=== PATIENT | male | born 1940 | race Caucasian/White ===

== ENCOUNTER → 2016-04-01 | Outpatient (CLI) | payer MEDICARE ==
[~2016-04-01] MED LIST: ALLO100T PO; CLON0.2T PO; COUM5TAB PO; FURO1TAB60 PO; METO25TA3 PO; POTA-163 PO; PRESCAP6 PO; SYMB80AE INH; SYSTSOL9 EACH EYE; [UNRECOGNIZED DRUG - CODE] PO
== END ==
LOC: PLAB 11:11
PROVIDERS: ATTEND Urology
DX: N40.1 Benign prostatic hyperplasia with lower urinary tract symptoms (principal)
CPT/HCPCS: 36415; 84153

== ENCOUNTER → 2016-04-28 | Outpatient (CLI) | payer MEDICARE ==
[2016-04-28 09:39] LABS: BASOPHIL # 0.1 TH/MM3 (0-0.2); BASOPHIL % 1.2 % (0.0-2.0); EOSINOPHIL # 0.2 TH/MM3 (0-0.4); EOSINOPHIL % 4.4 % (0.0-4.0); HEMATOCRIT 44.5 % (39.0-51.0); HEMO FLAGS DIFF FINAL; LYMPH % 25.7 % (9.0-44.0); LYMPHOCYTE # 1.2 TH/MM3 (1.0-4.8); MEAN CELL VOLUME 97.1 FL (80.0-100.0); MEAN CORPUSCULAR HEMOGLOBIN 32.7 PG (27.0-34.0); MEAN CORPUSCULAR HGB CONC 33.7 % (32.0-36.0); MONO % 5.6 % (0.0-8.0); NEUT % 63.1 % (16.0-70.0); PLATELET COUNT 121 TH/MM3 (150-450); RED BLOOD COUNT 4.58 MIL/MM3 (4.50-5.90); RED CELL DISTRIBUTION WIDTH 13.6 % (11.6-17.2); WHITE BLOOD COUNT 4.8 TH/MM3 (4.0-11.0)
[2016-04-28 10:07] LABS: ALKALINE PHOSPHATASE 103 U/L (45-117); ALT (GPT) 46 U/L (12-78); ANION GAP 6 MEQ/L (5-15); AST (GOT) 41 U/L (15-37); BICARBONATE 31.2 MEQ/L (21.0-32.0); BLOOD UREA NITROGEN 17 MG/DL (7-18); CHLORIDE 102 MEQ/L (98-107); GLOMERULAR FILTRATION RATE 72 ML/MIN (>89); GLUCOSE,FASTING 98 MG/DL (74-99); LDL CHOLESTEROL 76 MG/DL (0-99); POTASSIUM 4.6 MEQ/L (3.5-5.1); SODIUM (NA) 139 MEQ/L (136-145); TOTAL BILIRUBIN ADULT 0.5 MG/DL (0.2-1.0); URIC ACID 5.9 MG/DL (2.6-7.2)
== END ==
LOC: PLAB 07:17
PROVIDERS: ATTEND Family Medicine
DX: E78.2 Mixed hyperlipidemia (principal); M10.9 Gout, unspecified; D69.6 Thrombocytopenia, unspecified
CPT/HCPCS: 36415; 80053; 80061; 84550; 85025

== ENCOUNTER → 2016-05-12 | Outpatient (CLI) | payer MEDICARE ==
[2016-05-12 10:00] LABS: BLOOD GAS BASE EXCESS 1.4 mmol/L (-2-2); BLOOD GAS CARBOXYHEMOGLOBIN 1.3 % (0-4); BLOOD GAS HCO3 25 mmol/L (22-26); BLOOD GAS O2 HGB SATURATION 94 % (90-100); BLOOD GAS OXYGEN CONTENT 19.8 Vol % (12.0-20.0); BLOOD GAS PCO2 38 mmHg (38-42); BLOOD GAS PO2 84 mmHg (61-120); BLOOD GAS TOTAL HGB 14.9 G/DL (12.0-16.0); CRITICAL VALUE NO; DRAW SITE RT RADIAL; FIO2 21 %; NUMBER OF ARTERIAL PUNCTURES 1; STAT NO; TEMP CORR TO 98.6; ULNAR PULSE PRESENT
--- NOTE | 2016-05-16 12:04 | RSPPFT ---
DATE OF PROCEDURE: 05/12/16 COMMENTS: The forced vital capacity shows a small reduction with no significant improvement after bronchodilator. The FEV1 is normal with no significant improvement after bronchodilator. The FEV1/FVC ratio is normal. The FEF 25-75 is normal. The total lung capacity is normal but on the low end of normal with a normal residual volume and an increased RV/TLC ratio. IMPRESSION: This is compatible with mild, irreversible, obstructive lung disease. The diffusion capacity is normal when corrected for alveolar volume.
--- NOTE | 2016-05-16 12:30 | RSPPFT ---
DATE OF PROCEDURE: 05/12/16 COMMENTS: Spirometry shows FVC is 2.9 at 74% of predicted, FEV1 of 2.1 at 84%, FEV1/FVC ratio is normal. Flow is normal at FEF 25 and decreased at FEF 50, FEF 75 and FEF 25-75. There is no response after bronchodilator treatment. Lung volumes show residual volume is normal. TLC is normal. Diffusion capacity is normal. Flow volume loops indicate terminal airways obstruction. Room air arterial blood gases show pH 7.4, PCO2 of 38, PO2 of 83, BiCarb of 25%, O2 Saturation at 94%. IMPRESSION: 1. Mild small airways obstructive lung disease. 2. No response after bronchodilator treatment. 3. Normal lung volumes. 4. Normal diffusion capacity. 5. Room air arterial blood gases show normal oxygenation.
== END ==
LOC: HRSP 08:54
PROVIDERS: ATTEND Family Medicine
DX: R05 Cough (principal)
CPT/HCPCS: 36600; 82805; 94060; 94726; 94729

== ENCOUNTER → 2016-09-26 | Outpatient (CLI) | payer MEDICARE ==
[2016-09-26 16:51] LABS: HEMATOCRIT 46.2 % (39.0-51.0); MEAN CELL VOLUME 93.8 FL (80.0-100.0); MEAN CORPUSCULAR HEMOGLOBIN 31.8 PG (27.0-34.0); MEAN CORPUSCULAR HGB CONC 33.9 % (32.0-36.0); PLATELET COUNT 111 TH/MM3 (150-450); RED BLOOD COUNT 4.92 MIL/MM3 (4.50-5.90); RED CELL DISTRIBUTION WIDTH 14.3 % (11.6-17.2); REVIEW FLAG FINAL
== END ==
LOC: PLAB 11:05
PROVIDERS: ATTEND Internal Medicine Interventional Cardiology
DX: I48.91 Unspecified atrial fibrillation (principal); I11.9 Hypertensive heart disease without heart failure; E78.5 Hyperlipidemia, unspecified
CPT/HCPCS: 36415; 85027

== ENCOUNTER → 2016-12-07 | Outpatient (CLI) | payer MEDICARE ==
[~2016-12-07] MED LIST changes: +LISI10TA3 PO; +POTA10TA2 PO; +SYSTSOL8 EACH EYE; +[UNRECOGNIZED DRUG - CODE] PO
[2016-12-07 13:25] LABS: HEMATOCRIT 43.3 % (39.0-51.0); MEAN CORPUSCULAR HEMOGLOBIN 33.4 PG (27.0-34.0); MEAN CORPUSCULAR HGB CONC 33.8 % (32.0-36.0); PLATELET COUNT 108 TH/MM3 (150-450); RED BLOOD COUNT 4.38 MIL/MM3 (4.50-5.90); RED CELL DISTRIBUTION WIDTH 12.9 % (11.6-17.2); REVIEW FLAG FINAL; WHITE BLOOD COUNT 5.6 TH/MM3 (4.0-11.0)
[2016-12-07 13:51] LABS: ANION GAP 3 MEQ/L (5-15); AST (GOT) 29 U/L (15-37); BICARBONATE 31.9 MEQ/L (21.0-32.0); BLOOD UREA NITROGEN 19 MG/DL (7-18); CHLORIDE 103 MEQ/L (98-107); GLOMERULAR FILTRATION RATE 68 ML/MIN (>89); GLUCOSE,FASTING 90 MG/DL (74-99); POTASSIUM 4.1 MEQ/L (3.5-5.1); SODIUM (NA) 138 MEQ/L (136-145)
[2016-12-07 14:14] LABS: ALKALINE PHOSPHATASE 91 U/L (45-117); ALT (GPT) 32 U/L (12-78); HDL CHOLESTEROL 42.1 MG/DL (40.0-60.0); LDL CHOLESTEROL 87 MG/DL (0-99); TOTAL BILIRUBIN ADULT 0.5 MG/DL (0.2-1.0); URIC ACID 6.7 MG/DL (2.6-7.2)
== END ==
LOC: PLAB 08:34
PROVIDERS: ATTEND Family Medicine
DX: D69.6 Thrombocytopenia, unspecified (principal); M10.9 Gout, unspecified; I10 Essential (primary) hypertension; N40.0 Benign prostatic hyperplasia without lower urinary tract symptoms
CPT/HCPCS: 36415; 80053; 80061; 84153; 84550; 85027

== ENCOUNTER → 2017-04-14 | Outpatient (CLI) | payer MEDICARE ==
[~2017-04-14] MED LIST changes: -CLON0.2T PO; -POTA-163 PO; -SYSTSOL9 EACH EYE; -[UNRECOGNIZED DRUG - CODE] PO
== END ==
LOC: PLAB 10:24
PROVIDERS: ATTEND Urology
DX: N40.1 Benign prostatic hyperplasia with lower urinary tract symptoms (principal)
CPT/HCPCS: 36415; 84153

== ENCOUNTER → 2017-05-31 | Outpatient (CLI) | payer MEDICARE ==
[2017-05-31 11:00] LABS: AUTOMATED NEUTROPHIL # 3.6 TH/MM3 (1.8-7.7); BASOPHIL % 0.4 % (0.0-2.0); EOSINOPHIL # 0.2 TH/MM3 (0-0.4); EOSINOPHIL % 3.1 % (0.0-4.0); HEMATOCRIT 44.4 % (39.0-51.0); HEMOGLOBIN 15.2 GM/DL (13.0-17.0); LYMPH % 24.2 % (9.0-44.0); LYMPHOCYTE # 1.3 TH/MM3 (1.0-4.8); MEAN CELL VOLUME 92.6 FL (80.0-100.0); MEAN CORPUSCULAR HEMOGLOBIN 31.6 PG (27.0-34.0); MEAN CORPUSCULAR HGB CONC 34.2 % (32.0-36.0); MEAN PLATELET VOLUME 10.4 FL (7.0-11.0); MONO % 7.5 % (0.0-8.0); MONOCYTE # 0.4 TH/MM3 (0-0.9); NEUT % 64.8 % (16.0-70.0); PLATELET COUNT 99 TH/MM3 (150-450); RED BLOOD COUNT 4.79 MIL/MM3 (4.50-5.90); RED CELL DISTRIBUTION WIDTH 14.7 % (11.6-17.2); WHITE BLOOD COUNT 5.5 TH/MM3 (4.0-11.0)
== END ==
LOC: PLAB 08:14
PROVIDERS: ATTEND Internal Medicine Interventional Cardiology
DX: I48.91 Unspecified atrial fibrillation (principal); I11.9 Hypertensive heart disease without heart failure; E78.5 Hyperlipidemia, unspecified
CPT/HCPCS: 36415; 85025

== ENCOUNTER → 2017-06-14 | Outpatient (CLI) | payer MEDICARE ==
[~2017-06-14] MED LIST changes: +AMLO10TA2 PO
[2017-06-14 11:10] LABS: BICARBONATE 28.2 MEQ/L (21.0-32.0); CALCIUM 8.8 MG/DL (8.5-10.1); CREATININE 0.93 MG/DL (0.60-1.30)
== END ==
LOC: PLAB 08:27
PROVIDERS: ATTEND Internal Medicine Interventional Cardiology
DX: E78.5 Hyperlipidemia, unspecified (principal); I25.10 Atherosclerotic heart disease of native coronary artery without angina pectoris; Z79.899 Other long term (current) drug therapy
CPT/HCPCS: 36415; 80048

== ENCOUNTER 2017-06-15 20:47 | Emergency (ER) | payer MEDICARE ==
[~2017-06-15] VITALS: Ht 175.3 cm; Wt 82.6 kg
[~2017-06-15 20:47] MED LIST changes: -AMLO10TA2 PO
[2017-06-15 20:52] VITALS: BP 222/106; PULSE 70; RESP 16; TEMP 98.5; O2SAT 99
[2017-06-15 21:31] VITALS: BP 213/108; PULSE 63; RESP 18; O2SAT 96
[2017-06-15] MEDS ORDERED: cloNIDine HCL 0.1 MG TAB PO ONE (22:00)
[2017-06-15] MEDS ORDERED: AMLO10TA2 PO (22:01)
--- NOTE | 2017-06-15 22:01 | PD ---
HPI Chief Complaint: Hypertension Time Seen by Provider: 21:42 Travel History International Travel<30 days: No Contact w/Intl Traveler<30days: No Traveled to known affect area: No History of Present Illness HPI 77-year-old male complains of elevated blood pressure. Patient has history of hypertension and was on lisinopril 10 mg daily and metoprolol 25 mg daily. Patient was seen by his mosaic layer Dr. Coppola 6 days ago. Patient's heart rate at that time was 38. Patient was advised to stop taking metoprolol and increase lisinopril to 20 mg daily. Patient states that he started increase lisinopril yesterday to 20 mg daily. Patient states that his blood pressures was elevated today. Patient denies any headache. Patient denies any chest pain or shortness of breath. Patient denies other problem. PFSH Past Medical History Hx Anticoagulant Therapy: Yes (COUMADIN) Atrial Fibrillation: Yes Cardiovascular Problems: Yes (HTN, CHOL, A. 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 2007) Diabetes: No Diminished Hearing: Yes (HEARING AIDS) Diverticulitis: Yes Gout: Yes Hypertension: Yes Inguinal Hernia: Yes Respiratory: Yes (SLEEP APNEA) Immunizations Current: Yes (SHINGLES) Tetanus Vaccination: > 5 Years Influenza Vaccination: No Past Surgical History Abdominal Surgery: Yes (HERNIA REPAIR L/R) Cardiac Surgery: Yes (CLOSING OF HEART HOLE) Oral Surgery: Yes (UVULA REMOVED BECAUSE OF SLEEP APNEA) Tonsillectomy: Yes Other Surgery: Yes (HERNIA REPAIR X2) Social History Alcohol Use: Yes ([employer]) Tobacco Use: No (QUIT 2008) Substance Use: No Allergies-Medications (Allergen,Severity, Reaction): Coded Allergies: No Known Allergies (Verified Adverse Reaction, Unknown, 06/15/17) Reported Meds & Prescriptions Reported Meds & Active Scripts Active Amlodipine (Amlodipine Besylate) 10 Mg Tab 10 Mg PO DAILY Reported Lisinopril 10 Mg Tab 10 Mg PO DAILY Shark Fin Cartilage (Shark Cartilage) 500 Mg Capsule 1 Cap PO DAILY Preservision-Lutein (Multiple Vitamins W/ Minerals) 1 Cap 1 Cap PO DAILY Coumadin (Warfarin) 5 Mg Tab 5 Mg PO DIRECTED Allopurinol 100 Mg Tab 100 Mg PO DAILY Review of Systems General / Constitutional: No: Fever Eyes: No: Visual changes HENT: No: Headaches Cardiovascular: No: Chest Pain or Discomfort Respiratory: No: Shortness of Breath Gastrointestinal: No: Abdominal Pain Genitourinary: No: Dysuria Musculoskeletal: No: Pain Skin: No Rash Neurologic: No: Weakness Psychiatric: No: Depression Endocrine: No: Polydipsia Hematologic/Lymphatic: No: Easy Bruising Physical Exam Narrative GENERAL: Well-nourished, well-developed patient. SKIN: Focused skin assessment warm/dry. HEAD: Normocephalic. EYES: No scleral icterus. No injection or drainage. NECK: Supple, trachea midline. No JVD or lymphadenopathy. CARDIOVASCULAR: Regular rate and rhythm without murmurs, gallops, or rubs. RESPIRATORY: Breath sounds equal bilaterally. No accessory muscle use. GASTROINTESTINAL: Abdomen soft, non-tender, nondistended. MUSCULOSKELETAL: No cyanosis, or edema. BACK: Nontender without obvious deformity. No CVA tenderness. Neurologic exam normal. Data Data Last Documented VS Vital Signs Date Time Temp Pulse Resp B/P (MAP) Pulse Ox O2 Delivery O2 Flow Rate FiO2 06/15/17 22:31 60 16 168/95 (119) 96 Room Air 06/15/17 20:52 98.5 Orders Orders Clonidine (Catapres) (06/15/17 22:00) MDM Medical Decision Making Medical Screen Exam Complete: Yes Emergency Medical Condition: Yes Differential Diagnosis Differential diagnosis including uncontrolled hypertension, hypertensive urgency , hypertensive crisis. Narrative Course 77-year-old male with elevated blood pressure. Patient was advised by his mosaic layer to stop metoprolol secondary to bradycardia 5 days ago. Patient started double up on his lisinopril since yesterday. Blood pressure is elevated today. Patient otherwise asymptomatic. Clonidine 0.1 mg p.o. given. 22:35 PM. Blood pressure under more control. Diagnosis Primary Impression: Uncontrolled hypertension Patient Instructions: General Instructions Additional Instructions: Continue with lisinopril 20 mg daily as directed. Take amlodipine 10 mg daily starting tomorrow. Check blood pressure daily. Follow-up with personal physician. Return if persistent elevated blood pressure. Med/Other Pt SpecificInfo: Prescription(s) given Scripts Amlodipine (Amlodipine) 10 Mg Tab 10 MG PO DAILY for Blood Pressure Management, #30 TAB 0 Refills Prov: Max Sorto MD 06/15/17 Disposition: 01 DISCHARGE HOME Condition: Stable Max Sorto MD Jun 15, 2017 22:01
[2017-06-15 22:31] VITALS: BP 168/95; PULSE 60; RESP 16; O2SAT 96
== END 2017-06-15 22:43 | disposition home or self-care (01) ==
LOC: PHED 20:47
DX: I10 Essential (primary) hypertension (principal); I48.91 Unspecified atrial fibrillation; Z79.01 Long term (current) use of anticoagulants; Z87.891 Personal history of nicotine dependence
CPT/HCPCS: 99283